=== PATIENT | male | born 1960 | race Hispanic/Latino ===

== ENCOUNTER 2024-06-13 11:55 | Outpatient (CLI) | payer MEDICARE | END 2024-06-13 11:56 | disposition home or self-care (01) | LOC: SCSRAD 11:55 | PROVIDERS: ATTEND Family Medicine | DX: S69.92XA Unspecified injury of left wrist, hand and finger(s), initial encounter (principal); M25.532 Pain in left wrist; M25.832 Other specified joint disorders, left wrist; Z91.81 History of falling ==

== ENCOUNTER 2025-04-11 11:02 | Outpatient (CLI) | payer MEDICARE | END 2025-04-11 11:03 | disposition home or self-care (01) | LOC: SCSRAD 11:02 | PROVIDERS: ATTEND Family Medicine | DX: M25.562 Pain in left knee (principal); M25.462 Effusion, left knee ==